=== PATIENT | male | born 1970 | race Asian ===

== ENCOUNTER 2018-08-03 12:18 | Outpatient (CLI) | payer OTHER ==
[2018-08-03] MEDS ORDERED: GADOPENTETATE DIMEGLUMINE 5 ML VIAL IVP ONE ×2 (12:31→13:19)
[2018-08-03] MEDS ORDERED: BUFFERED LIDOCAINE 10 ML SYRINGE ONE (12:32)
[2018-08-03] MEDS ORDERED: IOTHALAMATE MEGLUMINE 50 ML VIAL ONE (12:32)
[2018-08-03] MEDS ORDERED: BUFFERED LIDOCAINE 10 ML SYRINGE IU ONE (13:19)
[2018-08-03] MEDS ORDERED: IOTHALAMATE MEGLUMINE 50 ML VIAL IVP ONE (13:19)
--- NOTE | 2018-08-03 14:48 | XRAY Report ---
Reason: PAIN IN UNSPECIFIED SHOULDER Procedure Date: 08/03/2018 Accession Number: [id number] / [id number] Procedure: FL - Arthrogram Needle Placement CPT Code: FULL RESULT: EXAM: FLUOROSCOPIC GUIDANCE EXAM DATE: 08/03/2018 01:17 PM. CLINICAL HISTORY: Right shoulder pain. This procedure is performed prior to a right shoulder MRI arthrogram. COMPARISON: None. FINDINGS: Informed consent was obtained. Using sterile technique and anterior approach, local anesthetic was applied. A 22-gauge needle was placed into the glenohumeral joint. A suspension of gadolinium-based contrast, sterile saline, and sterile iodinated contrast was instilled without difficulty. IMPRESSION: Fluoroscopic guidance provided for right glenohumeral joint contrast injection prior to MR arthrogram which should be reported separately.. Total fluoroscopy time: 40 seconds. Number of images: 24. [facility]
--- NOTE | 2018-08-04 10:00 | MRI Report ---
Reason: PAIN IN UNSPECIFIED SHOULDER Procedure Date: 08/03/2018 Accession Number: [id number] / [id number] Procedure: MRI - Arthrogram Shoulder RT CPT Code: FULL RESULT: EXAM: RIGHT SHOULDER MRI ARTHROGRAM WITH CONTRAST EXAM DATE: 08/03/2018 01:53 PM. CLINICAL HISTORY: Pain in unspecified shoulder. COMPARISON: None. TECHNIQUE: Multiplanar, multisequence T1-weighted and fluid-sensitive sequences of the shoulder after an arthrographic injection of dilute gadolinium, dictated under a separate exam. Other: None. FINDINGS: Acromioclavicular Region: The acromion is type II. AC joint shows moderate osteoarthritic change. The coracoacromial and coracoclavicular ligaments are intact. There is no contrast or fluid in the subacromial/subdeltoid bursa. Glenohumeral Region: No subluxation. No loose bodies. The articular cartilage is unremarkable. The glenohumeral ligaments and joint capsule are unremarkable. Bone Marrow: No fracture, marrow edema or bone lesions. Labrum: The labrum is unremarkable. Biceps Tendon: The long head of the biceps tendon and biceps braeden are intact. Musculature/Rotator Cuff: Increased T2 signal in the distal supraspinatus and infraspinatus portion of the rotator cuff. Small collection of calcium seen in the distal supraspinatus portion. Series 901 image 15. This measures about 10 mm. No proximal muscle bundle edema or fatty atrophy. Other: None. IMPRESSION: 1. Type II unipartite undersurface osseous acromion shape. AC joint shows moderate osteoarthritic change. 2. No partial or full-thickness tears. Chronic calcific rotator cuff tendinitis involve the supraspinatus. There is some tendinitis also seen in the infraspinatus as well. Labrum, capsular structures and long head of biceps appear unremarkable. [facility]
== END 2018-08-03 12:19 | disposition home or self-care (01) ==
LOC: DI 12:18
PROVIDERS: ATTEND General Practice
DX: M19.011 Primary osteoarthritis, right shoulder (principal); M75.31 Calcific tendinitis of right shoulder
CPT/HCPCS: 23350; 73222; 77002; Q9961